=== PATIENT | male | born 1990 | race Caucasian/White ===

== ENCOUNTER 2023-07-26 16:41 | Emergency (ER) | payer SELFPAY ==
[~2023-07-26] VITALS: Ht 188 cm; Wt 70.3 kg
[2023-07-26 16:50] VITALS: BP_SYST 136; PULSE 82; RESP 16; TEMP 98.1; O2SAT 98
[2023-07-26] MEDS ORDERED: CEPHALEXIN 125 MG/5 ML, 100 ML BTL PO ONE (18:45)
[2023-07-26] MEDS ORDERED: BACITRACIN 1 GM OINT TP ONE (18:45)
[2023-07-26] MEDS ORDERED: LIDOCAINE 1% 10 MG/ML, 20 ML MDV INJ ONE (18:45)
[2023-07-26] MEDS ORDERED: DIPHTH,PERTUSS(ACELL),TET VAC 0.5 ML VIAL (Tdap) I.M. ONE (18:45)
[2023-07-26] MEDS ORDERED: HYDROcodone/ACETAMIN 10-325 MG TAB PO ONE (18:45)
[2023-07-26] MEDS ORDERED: IBUPROFEN 800 MG TABLET PO ONE (18:45)
[2023-07-26] MEDS ORDERED: CEPH250C PO (19:06)
[2023-07-26] MEDS ORDERED: HYDR-3921 PO (19:06)
[2023-07-26] MEDS ORDERED: IBUP-1971 PO (19:06)
[2023-07-26 19:56] VITALS: BP_SYST 118; PULSE 77; RESP 18; TEMP 98.3; O2SAT 99
== END 2023-07-26 19:25 | disposition home or self-care (01) ==
LOC: SED 16:41
DX: S92.421A Displaced fracture of distal phalanx of right great toe, initial encounter for closed fracture (principal); S91.111A Laceration without foreign body of right great toe without damage to nail, initial encounter; W20.8XXA Other cause of strike by thrown, projected or falling object, initial encounter; Y93.89 Activity, other specified; Y92.89 Other specified places as the place of occurrence of the external cause; Y99.8 Other external cause status
CPT/HCPCS: 99283